=== PATIENT | female | born 1990 | race Caucasian/White ===

== ENCOUNTER 2017-01-28 15:18 | Emergency (ER) | payer OTHER ==
[~2017-01-28] VITALS: Ht 175.3 cm; Wt 74.8 kg
[2017-01-28] MEDS ORDERED: NS 1,000 ML IV ONE ×2 (16:30)
[2017-01-28] MEDS ORDERED: ONDANSETRON 4MG/2ML VIAL (J2405) IV ONE (16:30)
[2017-01-28] MEDS ORDERED: METOCLOPRAMIDE INJ 10MG/2ML VIAL (J2765) IV ONE (17:45)
[2017-01-28] MEDS ORDERED: D5W/0.9% SODIUM CHLORIDE 1,000 ML IV ONE (18:45)
[2017-01-28 19:27] VITALS: BP 105/51
== END 2017-01-28 19:29 | disposition home or self-care (01) ==
LOC: M ED 16:52
DX: O99.89 Other specified diseases and conditions complicating pregnancy, childbirth and the puerperium (principal); R11.10 Vomiting, unspecified; R19.7 Diarrhea, unspecified; Z3A.15 15 weeks gestation of pregnancy; Z88.2 Allergy status to sulfonamides
CPT/HCPCS: 96365; 96375; 99282; J2405; J2765